=== PATIENT | female | born 1935 | race Caucasian/White ===

== ENCOUNTER 2020-10-30 19:26 | Emergency (ER) | payer MEDICARE ==
[~2020-10-30] VITALS: Ht 160 cm; Wt 44.5 kg
--- NOTE | 2020-10-30 19:50 | NUR ---
Dr. Sanchez at bedside for MSE.
--- NOTE | 2020-10-30 20:20 | NUR ---
Patient out of ER for CT.
--- NOTE | 2020-10-30 20:35 | NUR ---
Pt back to ER from CT.
--- NOTE | 2020-10-30 21:00 | NUR ---
Patient discharged to home in stable condition. Written and verbal after care instructions given. Patient verbalizes understanding of instructions. Stressed follow up or return to ER for worsening s/s. Patient out of ER with steady gait, no acute signs of distress, VSS, all belongings taken, provided with copies of CT results.
[2020-10-30 21:01] VITALS: BP 140/70
== END 2020-10-30 21:01 | disposition home or self-care (01) ==
LOC: ER 19:27
DX: S01.112A Laceration without foreign body of left eyelid and periocular area, initial encounter (principal); W01.0XXA Fall on same level from slipping, tripping and stumbling without subsequent striking against object, initial encounter; Y92.89 Other specified places as the place of occurrence of the external cause; M50.021 Cervical disc disorder at C4-C5 level with myelopathy; M48.02 Spinal stenosis, cervical region; M35.00 Sjogren syndrome, unspecified; M19.90 Unspecified osteoarthritis, unspecified site
CPT/HCPCS: 70450; 72125; A4663

== ENCOUNTER 2023-04-24 11:13 | Inpatient (IN) | payer MEDICARE ==
[~2023-04-24] VITALS: Ht 154.9 cm; Wt 41.7 kg
[2023-04-24 12:13] LABS: BASOPHILS % (AUTO) 0.2 % (0.0-2.0); EOSINOPHILS % (AUTO) 0.2 % (0.0-7.0); HEMATOCRIT 42.3 % (31.2-41.9); HEMOGLOBIN 13.8 g/dL (10.9-14.3); LYMPHOCYTES # (AUTO) 0.4 K/uL (0.8-4.8); LYMPHOCYTES % (AUTO) 2.9 % (20.5-51.5); MEAN CORPUSCULAR HEMOGLOBIN 30.7 uug (24.7-32.8); MEAN CORPUSCULAR HGB CONC 33 g/dL (32.3-35.6); MEAN CORPUSCULAR VOLUME 94.3 fL (75.5-95.3); MONOCYTES # (AUTO) 1.1 K/uL (0.1-1.30); MONOCYTES % (AUTO) 8.6 % (0.0-11.0); NEUTROPHILS % (AUTO) 88.1 % (38.5-71.5); PLATELET COUNT (AUTO) 329 K/uL (179-408); RED BLOOD CELL COUNT(AUTO) 4.49 MIL/uL (3.63-4.92); RED CELL DISTRIBUTION WIDTH 13.4 % (12.3-17.7); WHITE BLOOD COUNT (AUTO) 12.5 K/uL (3.8-11.8)
[2023-04-24 12:32] LABS: DIFFERENTIAL COMMENT 1
[2023-04-24 13:05] LABS: CARBON DIOXIDE 25 mmol/L (21-32); CHLORIDE 102 mmol/L (98-107); CREATININE 2.6 mg/dL (0.6-1.3); GLUCOSE 85 mg/dL (74-106); POTASSIUM 3.5 mmol/L (3.5-5.1); SODIUM SERUM 139 mmol/L (136-145); UREA NITROGEN, BLOOD 33 mg/dL (7-18)
[2023-04-24 13:18] LABS: ALANINE AMINOTRANSFERASE 19 U/L (14-59); ASPARTATE AMINOTRANSFERASE 10 U/L (15-37); BILIRUBIN,DIRECT 0.2 mg/dL (0.0-0.2); BILIRUBIN,TOTAL 0.8 mg/dL (0.2-1.0); NT-PRO BNP 2705 pg/mL (0-125)
[2023-04-24 13:32] LABS: ALKALINE PHOSPHATASE 47 U/L (50-136)
[2023-04-24] MEDS ORDERED: ACETAMINOPHEN 325 MG TABLET PO PRN (19:30)
[2023-04-24] MEDS ORDERED: MAGNESIUM HYDROXIDE 30 ML LIQUID UDC PO PRN (19:30)
[2023-04-24] MEDS ORDERED: REMEDY ESSENTIAL ZINC PASTE 113 GM TP PRN (19:30)
[2023-04-24] MEDS ORDERED: IV 1/2NS 1000 ML 1,000 ML IV PRN (19:30)
[2023-04-24] MEDS ORDERED: ONDANSETRON 4 MG/2 ML VIAL IV PRN (19:30)
[2023-04-24] MEDS: HEPARIN SODIUM,PORCINE 5,000 UNITS/ML VIAL SQ SCH ×2 (21:00→22:25)
[2023-04-24 21:30] VITALS: BP 126/55; TEMP 97.9; O2SAT 98
[2023-04-24] MEDS ORDERED: ALPRAZOLAM 0.5 MG TABLET PO PRN (23:00)
[2023-04-24] MEDS: HYDROCODONE/APAP 5-325MG TABLET PO PRN (23:42)
[2023-04-25] VITALS: BP 139/52; TEMP 97.8; O2SAT 97
[2023-04-25] MEDS: PANTOPRAZOLE SODIUM 40 MG TABLET.DR PO SCH (06:56)
[2023-04-25 07:23] LABS: BASOPHILS # (AUTO) 0.1 K/UL (0.0-0.2); BASOPHILS % (AUTO) 0.7 % (0.0-2.0); EOSINOPHILS # (AUTO) 0.2 K/uL (0.0-0.7); EOSINOPHILS % (AUTO) 2.4 % (0.0-7.0); HEMATOCRIT 37.5 % (31.2-41.9); HEMOGLOBIN 12.6 g/dL (10.9-14.3); LYMPHOCYTES # (AUTO) 1.2 K/uL (0.8-4.8); LYMPHOCYTES % (AUTO) 14.2 % (20.5-51.5); MEAN CORPUSCULAR HGB CONC 34 g/dL (32.3-35.6); MEAN CORPUSCULAR VOLUME 92.7 fL (75.5-95.3); MONOCYTES # (AUTO) 0.9 K/uL (0.1-1.30); MONOCYTES % (AUTO) 10.6 % (0.0-11.0); NEUTROPHILS % (AUTO) 72.1 % (38.5-71.5); PLATELET COUNT (AUTO) 286 K/uL (179-408); RED BLOOD CELL COUNT(AUTO) 4.05 MIL/uL (3.63-4.92); RED CELL DISTRIBUTION WIDTH 13.4 % (12.3-17.7); WHITE BLOOD COUNT (AUTO) 8.4 K/uL (3.8-11.8)
[2023-04-25 07:28] LABS: CALCIUM 8.5 mg/dL (8.5-10.1); CARBON DIOXIDE 22 mmol/L (21-32); CHLORIDE 104 mmol/L (98-107); CREATININE 2.4 mg/dL (0.6-1.3); GLUCOSE 78 mg/dL (74-106); MAGNESIUM 1.6 mg/dL (1.8-2.4); PHOSPHOROUS 4.1 mg/dL (2.5-4.9); POTASSIUM 3.2 mmol/L (3.5-5.1); SODIUM SERUM 138 mmol/L (136-145); UREA NITROGEN, BLOOD 41 mg/dL (7-18)
[2023-04-25 07:36] LABS: DIFFERENTIAL COMMENT 1
[2023-04-25 07:48] LABS: THYROID STIMULATING HORMONE 3.476 mIU/mL (0.358-3.740)
[2023-04-25] MEDS: ASPIRIN 81 MG TAB.CHEW PO SCH ×2 (08:53→08:59)
[2023-04-25] MEDS: HEPARIN SODIUM,PORCINE 5,000 UNITS/ML VIAL SQ SCH ×2 (08:54→20:45)
[2023-04-25] MEDS ORDERED: POTASSIUM CHLORIDE 10 MEQ TAB.PRT.SR PO ONE (10:00)
[2023-04-25] MEDS ORDERED: MAGNESIUM OXIDE 400 MG TABLET PO ONE (10:00)
[2023-04-25] MEDS ORDERED: ALPRAZOLAM 0.5 MG TABLET PO PRN (11:45)
[2023-04-25] MEDS ORDERED: PRED2.5T PO (11:51)
[2023-04-25] MEDS ORDERED: MEMA10TA PO (11:51)
[2023-04-25] MEDS ORDERED: OLAN5TAB3 PO (11:51)
[2023-04-25] MEDS ORDERED: ALPR1TAB7 PO (11:51)
[2023-04-25] MEDS ORDERED: D-AM10TA2 PO (11:55)
[2023-04-25] MEDS ORDERED: CYCL1DRO6 EACHEYE (11:55)
[2023-04-25] MEDS ORDERED: VENL37.55 PO (11:55)
[2023-04-25] MEDS ORDERED: FOLI1TAB94 PO (11:55)
[2023-04-25] MEDS ORDERED: HYDR200T4 PO (11:55)
[2023-04-25] MEDS ORDERED: VENL150C58 PO (11:55)
[2023-04-25 11:59] VITALS: BP 105/53; TEMP 97.9; O2SAT 98
[2023-04-25] MEDS: HYDROCODONE/APAP 5-325MG TABLET PO PRN ×2 (12:17→17:15)
[2023-04-25] MEDS: IV 1/2NS 1000 ML 1,000 ML IV PRN (12:26)
[2023-04-25 16:26] VITALS: BP 122/52; TEMP 97.8; O2SAT 98
[2023-04-25 20:19] VITALS: BP 105/51; TEMP 97.6; O2SAT 96
[2023-04-25] MEDS ORDERED: ATORVASTATIN 20 MG TABLET PO SCH (21:00)
[2023-04-25] MEDS ORDERED: ALPRAZOLAM 0.5 MG TABLET PO SCH (21:00)
[2023-04-25] MEDS ORDERED: OLANZAPINE 5 MG TABLET PO SCH (21:00)
[2023-04-26 00:15] VITALS: BP 99/49; TEMP 97.6; O2SAT 96
[2023-04-26 04:16] VITALS: BP 98/46; TEMP 97.8; O2SAT 96
[2023-04-26] MEDS: PANTOPRAZOLE SODIUM 40 MG TABLET.DR PO SCH (06:15)
[2023-04-26] MEDS: IV 1/2NS 1000 ML 1,000 ML IV PRN (06:23)
[2023-04-26 06:35] LABS: BASOPHILS # (AUTO) 0.1 K/UL (0.0-0.2); EOSINOPHILS # (AUTO) 0.2 K/uL (0.0-0.7); EOSINOPHILS % (AUTO) 3.4 % (0.0-7.0); HEMATOCRIT 38.8 % (31.2-41.9); HEMOGLOBIN 12.7 g/dL (10.9-14.3); LYMPHOCYTES % (AUTO) 18.8 % (20.5-51.5); MEAN CORPUSCULAR HEMOGLOBIN 30.6 uug (24.7-32.8); MEAN CORPUSCULAR HGB CONC 33 g/dL (32.3-35.6); MEAN CORPUSCULAR VOLUME 93.2 fL (75.5-95.3); MONOCYTES # (AUTO) 0.6 K/uL (0.1-1.30); MONOCYTES % (AUTO) 11.5 % (0.0-11.0); NEUTROPHILS # (AUTO) 3.5 K/uL (1.8-8.9); NEUTROPHILS % (AUTO) 65.3 % (38.5-71.5); PLATELET COUNT (AUTO) 289 K/uL (179-408); RED BLOOD CELL COUNT(AUTO) 4.16 MIL/uL (3.63-4.92); RED CELL DISTRIBUTION WIDTH 13.3 % (12.3-17.7); WHITE BLOOD COUNT (AUTO) 5.3 K/uL (3.8-11.8)
[2023-04-26 06:40] LABS: DIFFERENTIAL COMMENT 1
[2023-04-26 06:58] LABS: ALANINE AMINOTRANSFERASE 29 U/L (14-59); ALBUMIN 2.3 g/dL (3.4-5.0); ALKALINE PHOSPHATASE 41 U/L (50-136); ASPARTATE AMINOTRANSFERASE 26 U/L (15-37); BILIRUBIN,TOTAL 0.4 mg/dL (0.2-1.0); CALCIUM 8.2 mg/dL (8.5-10.1); CARBON DIOXIDE 25 mmol/L (21-32); CHLORIDE 109 mmol/L (98-107); CREATININE 2.6 mg/dL (0.6-1.3); GLUCOSE 78 mg/dL (74-106); MAGNESIUM 1.7 mg/dL (1.8-2.4); PHOSPHOROUS 2.7 mg/dL (2.5-4.9); POTASSIUM 4.1 mmol/L (3.5-5.1); SODIUM SERUM 142 mmol/L (136-145); UREA NITROGEN, BLOOD 36 mg/dL (7-18)
[2023-04-26] MEDS ORDERED: MEMANTINE HCL 10 MG TABLET PO SCH (09:00)
[2023-04-26] MEDS ORDERED: VENLAFAXINE XR 37.5 MG CAP.SR.24H PO SCH (09:00)
[2023-04-26] MEDS ORDERED: DEXTROAMPHETAMINE SULFATE 10 MG PO SCH (09:00)
[2023-04-26] MEDS ORDERED: VENLAFAXINE XR 150 MG CAP.SR.24H PO SCH (09:00)
[2023-04-26] MEDS ORDERED: HYDROXYCHLOROQUINE SULFATE 200 MG TABLET PO SCH (09:00)
[2023-04-26] MEDS ORDERED: predniSONE 5 MG TABLET PO SCH (09:00)
[2023-04-26] MEDS ORDERED: FOLIC ACID 1 MG TABLET PO SCH (09:00)
[2023-04-26] MEDS: ASPIRIN 81 MG TAB.CHEW PO SCH (09:12)
[2023-04-26] MEDS: HEPARIN SODIUM,PORCINE 5,000 UNITS/ML VIAL SQ SCH (09:15)
[2023-04-26 11:49] VITALS: BP 102/47; TEMP 97.8; O2SAT 97
[2023-04-26 14:33] LABS: *BILIRUBIN,URIN NEGATIVE (NEGATIVE); *BLOOD, URINE 1+ (NEGATIVE); *CLARITY,URINE CLEAR (CLEAR); *COLOR,URINE YELLOW (YELLOW); *KETONES,URINE NEGATIVE (NEGATIVE); *PROTEIN,URINE TRACE (NEGATIVE); *UROBILINOGEN,URINE 0.2 E.U./dl (NORMAL); LEUKOCYTE ESTERASE ,URINE 1+ (NEGATIVE); NITRITE, URINE NEGATIVE (NEGATIVE); PH,URINE 5.5 (5.0-8.0); UGLUCOSE NEGATIVE (NEGATIVE)
[2023-04-26 14:35] LABS: *CREATININE,URINE 14.4 mg/dL (30-125); *URINE TOTAL PROTEIN RANDOM 24.2 mg/dL (<150/24HR)
[2023-04-26] MEDS ORDERED: MAGNESIUM OXIDE 400 MG TABLET PO ONE (14:45)
[2023-04-26 15:42] LABS: BACTERIA,URINE MANY /HPF (NONE SEEN); RBC,URINE 0-3 /HPF (0-3); SQUAMOUS EPITHELIAL CELL,UR FEW /HPF (NONE SEEN); WBC,URINE 20-50 /HPF (0-3)
[2023-04-26 16:00] VITALS: BP 101/52; TEMP 98.1; O2SAT 97
[2023-04-26 17:22] LABS: YEAST,URINE BUDDING YEAST /HPF (NONE SEEN)
[2023-04-26] MEDS ORDERED: ATOR20TA PO (17:26)
[2023-04-26] MEDS ORDERED: CEPH500C2 PO (17:26)
[2023-04-26] MEDS ORDERED: ASPI81TA31 PO (17:26)
[2023-04-26] MEDS ORDERED: NITR0.4T48 SL (17:56)
== END 2023-04-26 18:25 | disposition home or self-care (01) | DRG 311 ==
LOC: ER 11:13 → TELE3 20:48
PROVIDERS: ADMIT Student in an Organized Health Care Education/Training Program; ATTEND Student in an Organized Health Care Education/Training Program
DX: I20.0 Unstable angina (principal); N17.9 Acute kidney failure, unspecified; E44.0 Moderate protein-calorie malnutrition; Z68.1 Body mass index [BMI] 19.9 or less, adult; N18.4 Chronic kidney disease, stage 4 (severe); N39.0 Urinary tract infection, site not specified; M35.00 Sjogren syndrome, unspecified; E83.42 Hypomagnesemia; R79.1 Abnormal coagulation profile; F41.9 Anxiety disorder, unspecified; F32.A Depression, unspecified; E87.6 Hypokalemia; D72.829 Elevated white blood cell count, unspecified; R94.31 Abnormal electrocardiogram [ECG] [EKG]; R77.8 Other specified abnormalities of plasma proteins; N18.32 Chronic kidney disease, stage 3b; Z66 Do not resuscitate; M89.8X9 Other specified disorders of bone, unspecified site
CPT/HCPCS: 36415; 71045; 76770; 78580; 83735; 84100; 84300; 84443; 84484; 85025; 85730; 93005; 93307; A9540; G0378; J1644; J7512